=== PATIENT | female | born 1960 | race Hispanic/Latino ===

== ENCOUNTER 2018-07-10 20:30 | Emergency (ER) | payer SELFPAY ==
[~2018-07-10] VITALS: Ht 157.5 cm; Wt 104.3 kg
[2018-07-10] MEDS: SODIUM CHLORIDE 0.9% 1000ML 1,000 ML IV SCH ×2 (21:20→21:29)
[2018-07-10] MEDS ORDERED: KETOROLAC TROMETHAMINE 30 MG/ML VIAL IV STA (22:37)
--- NOTE | 2018-07-11 00:11 | Diagnostic Imaging Report ---
EXAM: CT ABDOMEN W/O CONTRAST DATE: 07/10/2018 10:53 PM INDICATION: \[id number] \[id number] COMPARISON: None TECHNIQUE: The abdomen and pelvis were scanned using a multidetector helical scanner. Coronal and sagittal reformations were obtained. IV Contrast: 0 ml Isovue 300/370 FINDINGS: Lack of IV contrast decreases sensitivity in evaluating abdominal and pelvic organs. LOWER THORAX: Mild bibasilar scarring. LIVER/BILIARY: Several liver hypodensities, likely cysts.. No ductal dilatation. GALLBLADDER: Unremarkable SPLEEN: Unremarkable PANCREAS: Unremarkable ADRENALS: No nodules KIDNEYS: No stones. No hydronephrosis. GI TRACT: No wall thickening or evidence of obstruction. Normal appendix. VESSELS: Mild atherosclerotic calcifications PERITONEUM/RETROPERITONEUM: No free air or fluid LYMPH NODES: No lymphadenopathy REPRODUCTIVE ORGANS/BLADDER: Hysterectomy. Otherwise unremarkable. SOFT TISSUES: Rectus muscle diastases with small fat-containing hernia BONES: No suspicious bone lesions. IMPRESSION: No acute abnormality on noncontrast evaluation. Signed by: Dr Mariana Painter MD on 07/11/2018 12:08 AM
[2018-07-11] MEDS ORDERED: CYCLOBENZAPRINE10 MG PO (00:32)
[2018-07-11] MEDS ORDERED: IBUPROFEN400 MG PO (00:33)
== END 2018-07-11 00:46 | disposition home or self-care (01) ==
LOC: FSED 20:30
DX: R10.32 Left lower quadrant pain (principal); R10.12 Left upper quadrant pain; S39.011A Strain of muscle, fascia and tendon of abdomen, initial encounter; M54.5 Low back pain; S39.012A Strain of muscle, fascia and tendon of lower back, initial encounter; R94.5 Abnormal results of liver function studies; I10 Essential (primary) hypertension; E01.8 Other iodine-deficiency related thyroid disorders and allied conditions
CPT/HCPCS: 74176; 99284; J1885